=== PATIENT | male | born 1945 | race Caucasian/White ===

== ENCOUNTER 2021-10-08 13:16 | Emergency (ER) | payer MEDICARE ==
[~2021-10-08 13:16] MED LIST: Voltaren Gel 1 % TOP
[2021-10-08] MEDS ORDERED: HYDROCODON-ACE1 EAC4 PO (16:41)
== END 2021-10-08 16:42 | disposition home or self-care (01) ==
LOC: ER1 13:16
DX: S43.014A Anterior dislocation of right humerus, initial encounter (principal); W01.0XXA Fall on same level from slipping, tripping and stumbling without subsequent striking against object, initial encounter; Y92.009 Unspecified place in unspecified non-institutional (private) residence as the place of occurrence of the external cause
CPT/HCPCS: 23650; 70450; 71045; 72125; 73030; 73060; 73080; 93005; 96374; 99284; J2405; J2704; J7030

== ENCOUNTER → 2021-12-29 | Outpatient (CLI) | payer MEDICARE, OTHER ==
[~2021-12-29] MED LIST changes: +HYDROCODON-ACE1 EAC4 PO
== END ==
LOC: EMI 15:57
DX: S43.004D Unspecified dislocation of right shoulder joint, subsequent encounter (principal); M75.111 Incomplete rotator cuff tear or rupture of right shoulder, not specified as traumatic; W01.190D Fall on same level from slipping, tripping and stumbling with subsequent striking against furniture, subsequent encounter
CPT/HCPCS: 73221